=== PATIENT | male | born 1995 | race Asian ===

== ENCOUNTER 2021-04-16 20:12 | Emergency (ER) | payer BC ==
[~2021-04-16] VITALS: Ht 175.3 cm; Wt 102.0 kg
[2021-04-16 20:22] VITALS: BP 121/58
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
--- NOTE | 2021-04-16 22:13 | RAD ---
Exam: Right humerus one view INDICATION: Pain, injury TECHNIQUE: Frontal and lateral views of the right humerus Comparisons: None FINDINGS: Bone mineralization is normal. No acute or healed fractures. Soft tissues are unremarkable. Joint spa viviana are well-maintained. IMPRESSION: No acute osseous abnormality. Electronically signed by: Ag Wiley MD (04/16/2021 10:11 PM) [email or web address]
[2021-04-16] MEDS ORDERED: DIPH,PERTUSS(ACELL),TET VAC/PF 0.5 ML SYRINGE. VAX IM ONE (22:45)
[2021-04-16] MEDS ORDERED: TRAM-48 PO (22:55)
[2021-04-16] MEDS ORDERED: CYCL10TA2 PO (22:55)
[2021-04-16] MEDS ORDERED: CEPH500T PO (22:55)
[2021-04-16] MEDS ORDERED: TETANUS AND DIPHTHERIA TOX/PF 0.5 ML DISP.SYRIN. VAX IM ONE (22:59)
== END 2021-04-16 23:03 | disposition home or self-care (01) ==
LOC: ER 20:12
DX: S32.008A Other fracture of unspecified lumbar vertebra, initial encounter for closed fracture (principal); S41.111A Laceration without foreign body of right upper arm, initial encounter; M54.6 Pain in thoracic spine; S40.211A Abrasion of right shoulder, initial encounter; W31.89XA Contact with other specified machinery, initial encounter; Y93.H2 Activity, gardening and landscaping; Y92.89 Other specified places as the place of occurrence of the external cause; Y99.8 Other external cause status
CPT/HCPCS: 12001; 71250; 73060; 74176; 99285-25